=== PATIENT | female | born 1975 | race Native Hawaiian/Other Pacific Islander ===

== ENCOUNTER 2017-08-02 08:42 | Day surgery (SDC) | payer OTHER ==
[2017-08-02] MEDS ORDERED: Sodium Chloride 0.9% 1,000 ML IV ONE (09:22)
[2017-08-02 10:39] LABS: BASO # 0.1 K/uL (0.0-0.2); BASO % 1.7 % (0.0-2.0); EOS # 0.1 K/uL (0.0-0.7); EOS % 2.4 % (0.0-4.0); HEMOGLOBIN 14.4 g/dL (12.0-16.0); LYMPH # 1.4 K/uL (1.0-4.3); LYMPH % 35.9 % (20.0-40.0); MEAN CELL VOLUME 87.5 fl (81.0-99.0); MEAN CORPUSCULAR HEMOGLOBIN 29.9 pg (27.0-31.0); MEAN CORPUSCULAR HGB CONC 34.2 g/dL (33.0-37.0); MEAN PLATELET VOLUME 8.8 fl (7.2-11.7); MONO # 0.4 K/uL (0.0-0.8); MONO % 10.5 % (0.0-10.0); NEUT % 49.5 % (50.0-75.0); RBC 4.82 Mil/uL (3.80-5.20); RED CELL DISTRIBUTION WIDTH 13.4 % (11.5-14.5)
[2017-08-02] MEDS ORDERED: Propofol 10 mg/ml Inj (20 ML) ONE (11:08)
[2017-08-02] MEDS ORDERED: Rocuronium 10 mg/ml (5 ml) ONE (11:08)
[2017-08-02] MEDS ORDERED: Succinylcholine 200 mg/10 ml Inj IV ONE (11:09)
[2017-08-02] MEDS ORDERED: Midazolam 2 MG/2 ML VIAL ONE (12:22)
[2017-08-02] MEDS ORDERED: Bupivacaine HCl 0.5% PF (30 ml) Inj ONE (12:48)
[2017-08-02] MEDS ORDERED: ePHEDrine 50 mg/ml Inj ONE (13:32)
[2017-08-02] MEDS ORDERED: Dexamethasone 4 mg/1 ml ONE (13:33)
[2017-08-02] MEDS ORDERED: Neostigmine 1:1000 (1 mg/ml) Inj ONE (13:38)
[2017-08-02] MEDS ORDERED: Bupivacaine 0.5% Inj(30mL) IJ ONE (13:41)
[2017-08-02] MEDS ORDERED: Silver Nitrate Topical - Stick ONE (14:13)
[2017-08-02] MEDS ORDERED: Lactated Ringer's 1,000 ML IV ONE ×2 (14:15→17:30)
[2017-08-02] MEDS ORDERED: Silver Nitrate Topical - Stick TOP ONE (14:40)
--- NOTE | 2017-08-02 16:01 | PCM.ANESB5 ---
Transverse Abdominis Block - Transverse Abdominis Plane Procedure Performed: Transverse Abdominis Plane Nerve Block Left, Transverse Abdominis Plane Nerve Block Right - Procedure Transverse Abdominis Plane Nerve Block: The procedure was explained to the patient that it is for post-operative pain management and would be performed after surgery. Consent was obtained prior to surgery after a thorough discussion with the patient regarding the benefits and possible complications of transverse abdominis plane block. After the surgery had concluded and before the patient emerged from general anesthesia, time-out was held with the circulating nurse to re-confirm the appropriate block. With the patient in supine position, the ultrasound probe was placed transverse to the abdominal wall at the mid-axillary line above the iliac crest of the appropriate side. The skin, subcutaneous tissue, fat, external oblique muscle, internal oblique muscle, and the transverse abdominis muscle were identified. The general area of the block site was then prepped with chloroprep. At this point, a # 21-gauge Stimuplex 4-inch needle was inserted posterior to and in plane with the ultrasound probe and directed anteriorly. Needle was advanced under direct ultrasound visualization until it reached the plane between the internal oblique and transverse abdominis muscles. After appropriate placement, 2mL of local anesthetic solution was injected. When the transverse abdominis plane was observed expanding in an ellipsoid way, the rest of the solution was slowly injected. A total of __20____ mL of __0.5___ % Bupivacaine was used for this block. The needle was then removed and sterile dressing was applied. Similarly, the same procedure was performed on the other side using the same medications. The patient had stable vital signs throughout and had no untoward complications after emergence from general anesthesia in the recovery room.
[2017-08-02] MEDS ORDERED: HYDROmorphone 0.5 mg/0.5 ml ISec IVP PRN (16:04)
[2017-08-02] MEDS ORDERED: Dexamethasone 10 MG in Dextrose 5% In Water 50 ML IV ONE (18:51)
[2017-08-02 20:48] VITALS: RESP 20
[2017-08-02 23:02] VITALS: BP 130/84; PULSE 83; TEMP 98; O2SAT 99
--- NOTE | 2017-08-07 18:24 | OP ---
PROCEDURE DATE: 08/02/2017 SURGEON: David Mcintyre M.D. GRAPHICS INTERN: Dale Solares M.D. PREOPERATIVE DIAGNOSIS: Dyspareunia and pelvic pain, rule out endometriosis. POSTOPERATIVE DIAGNOSIS: Dyspareunia and pelvic pain, rule out endometriosis. PROCEDURES PERFORMED: Diagnostic hysteroscopy; robotic laparoscopy, da Jaki; excision of endometriosis, and peritoneal ablation. COMPLICATIONS: None. ESTIMATED BLOOD LOSS: Minimal. DESCRIPTION OF PROCEDURE: After adequate anesthesia was obtained, the patient was placed in dorsal lithotomy position. She was prepped and draped. The surgeon was gowned and gloved. Attention was on the vaginal area where after placing a Banerjee in the bladder, a speculum was placed in the vagina. The anterior lip of the cervix was grasped, and the cervix was gently dilated, and a hysteroscopy was performed revealing a normal cavity with no polyps or any other masses. Attention was then on the abdomen where an open laparoscopy was performed by making an incision on the umbilicus and entering the peritoneum in a blunt fashion. Under direct visualization, three additional ports were placed; left upper quadrant, left mid quadrant, and right upper quadrant. The da Jaki Xi robot was then docked. At this point, attention was on the pelvis. There appeared some areas of erythema in the pelvis that were suspicious for endometriosis. The peritoneum overlying the ureter was grasped, and the retroperitoneum was entered, and a dissection over an area of the peritoneum was performed extending from the utero-ovarian ligament all the way to the left utero-ovarian ligament. An area also suspicious of endometriosis was excised from the posterior cervical area. Similarly on the right hand side, after identifying the ureter, a full dissection was performed of peritoneum, again extending from the upper part of the pelvic sidewall all the way down to the uterosacral ligaments. The J-Plasma was then used to ablate areas of peritoneum that appeared to be erythematous but not affected with endometriosis, especially in the cul-de-sac area. At this point, it was checked for hemostasis, appeared to be excellent. The da Jaki robot was undocked. The instruments were removed. The incisions were closed with 0 Vicryl for the fascia and 4-0 Monocryl for the skin. At the end of the procedure, all tape and instrument counts were correct. The patient tolerated the procedure well, was taken to the recovery room in excellent condition. David Mcintyre MD
== END 2017-08-02 22:50 | disposition home or self-care (01) ==
LOC: H.OPSURG 08:42 → H.PEDS 20:10 → H.OPSURG 22:50
PROVIDERS: ATTEND Obstetrics & Gynecology Reproductive Endocrinology
DX: N80.3 Endometriosis of pelvic peritoneum (principal); R10.2 Pelvic and perineal pain; E03.9 Hypothyroidism, unspecified; N94.10 Unspecified dyspareunia; N94.6 Dysmenorrhea, unspecified
CPT/HCPCS: 36415; 58563; 58662; 64488; 85025; 86850; 86900; 88305; C1729; J0330; J0690; J1100; J1170; J2001; J2250; J2405; J2704; J2710; J2765; J3010; J7030; J7040; J7120

== ENCOUNTER 2017-08-04 11:10 | Observation (INO) | payer OTHER ==
[2017-08-04 11:28] VITALS: BMI 21.2
[2017-08-04] MEDS ORDERED: Sodium Chloride 0.9% 1,000 ML IV STA (11:30)
--- NOTE | 2017-08-04 12:13 | ED PDOC ---
HPI: Abdomen Time Seen by Provider: 08/04/17 11:15 Chief Complaint (Nursing): Abdominal Pain Additional Complaint(s): 42 year old female with a history of hyperthyroidism presents to the ED complaining of abdominal pain s/p laparoscopic surgery. She states she had laparoscopic surgery on for endometriosis. Patient reports that pain was bearable the day after surgery, but has worsened yesterday and today. She has taken oxycodone without relief. Patient has minimal nausea and is able to pass flatus but denies fever, vomiting, diarrhea, or any other medical complaints. PMD: Dr. David Mcintyre Past Medical History - Medical History PMH: Hyperthyroidism Denies: Chronic Kidney Disease - Surgical History Other surgeries: laparoscopic surgery - Family History Family History: States: Unknown Family Hx - Home Medications Home Medications: Ambulatory Orders Medication Instructions Recorded Docusate [Colace] 100 mg PO PRN PRN 08/02/17 Ondansetron [Zofran Tab] 4 mg PO Q8 PRN 08/02/17 Oxycodone HCl [Roxicodone] 5 mg PO .Q6-8 PRN 08/02/17 - Allergies Allergies/Adverse Reactions: Allergies Allergy/AdvReac Type Severity Reaction Status Date / Time acetaminophen [From Tylenol] Allergy RASH Verified 08/04/17 12:01 aspirin Allergy RASH Verified 08/04/17 12:01 ibuprofen Allergy RASH Verified 08/04/17 12:01 Review of Systems ROS Statement: Except As Marked, All Systems Reviewed And Found Negative Constitutional: Negative for: Fever Gastrointestinal: Positive for: Nausea (minimal), Abdominal Pain (worsening). Negative for: Vomiting, Diarrhea Physical Exam - Physical Exam Appears: Positive for: Non-toxic, In Acute Distress (moderate painful) Head Exam: Positive for: ATRAUMATIC, NORMOCEPHALIC Skin: Positive for: Normal Color, Warm, Dry Eye Exam: Positive for: EOMI, Normal appearance, PERRL Neck: Positive for: Normal, Painless ROM Cardiovascular/Chest: Positive for: Regular Rate, Rhythm Respiratory: Positive for: CNT, Normal Breath Sounds Gastrointestinal/Abdominal: Positive for: Tenderness (bilateral upper quadrants) , Guarding (voluntary), Other (dressings intact and dry, no edema, no erythema ) . Negative for: Rebound Extremity: Positive for: Normal ROM (upper and lower extremities) Neurologic/Psych: Positive for: Alert (x3), Oriented - Laboratory Results Result Diagrams: 08/04/17 12:18 08/04/17 12:18 - ECG Pulse Ox Interpretation: Normal Medical Decision Making Medical Decision Making: Time: 11:28 Initial Impression: Abdominal Pain s/p laparoscopy Initial Plan: --CT Abd & Pelvis --EKG --CMP --Urine preg --Urine dip --CBC with differentials --PTT --Prothrombin --Morphine 2mg IV --NS IV --Zofran ODT 4 mg PO --Urinalysis Time: 12:15 --HCG Serum Scribe Attestation: Documented by Agnes Gonzales, acting as a scribe for Demetria Nails MD Provider Scribe Attestation: All medical record entries made by the Scribe were at my direction and personally dictated by me. I have reviewed the chart and agree that the record accurately reflects my personal performance of the history, physical exam, medical decision making, and the department course for this patient. I have also personally directed, reviewed, and agree with the discharge instructions and disposition. Disposition - Disposition Forms: J[employer]i (Yoruba)
[2017-08-04 12:31] LABS: BASO # 0.1 K/uL (0.0-0.2); BASO % 0.7 % (0.0-2.0); EOS # 0.1 K/uL (0.0-0.7); EOS % 0.7 % (0.0-4.0); HEMOGLOBIN 13.6 g/dL (12.0-16.0); LYMPH # 1.7 K/uL (1.0-4.3); LYMPH % 19.6 % (20.0-40.0); MEAN CELL VOLUME 88.4 fl (81.0-99.0); MEAN CORPUSCULAR HEMOGLOBIN 29.5 pg (27.0-31.0); MEAN CORPUSCULAR HGB CONC 33.3 g/dL (33.0-37.0); MEAN PLATELET VOLUME 8.8 fl (7.2-11.7); MONO # 0.9 K/uL (0.0-0.8); MONO % 10.6 % (0.0-10.0); NEUT # 5.9 K/uL (1.8-7.0); NEUT % 68.4 % (50.0-75.0); RBC 4.62 Mil/uL (3.80-5.20); RED CELL DISTRIBUTION WIDTH 13.7 % (11.5-14.5)
[2017-08-04 12:34] LABS: WHITE BLOOD COUNT 8.6 K/uL (4.8-10.8)
[2017-08-04 12:35] LABS: ALB/GLOB RATIO 1.2 (1.0-2.1); ALT/SGPT 21 U/L (9-52); AST/SGOT 19 U/L (14-36); BLOOD UREA NITROGEN 8 mg/dl (7-17); GFR AFRICAN-AMERICAN > 60; GFR NON-AFRICAN AMERICAN > 60
[2017-08-04 12:45] LABS: PARTIAL THROMBOPLASTIN TIME 33.4 Seconds (25.6-37.1); PROTHROMBIN TIME 10.5 Seconds (9.8-13.1)
[2017-08-04] MEDS ORDERED: Iohexol 300 100 ML IJ ONE (12:56)
[2017-08-04] MEDS ORDERED: Sodium Chloride 0.9% 50 ML IV ONE (12:56)
--- NOTE | 2017-08-04 14:42 | CT ---
PROCEDURE: CT Abdomen and Pelvis with contrast HISTORY: Upper abd pain, status post laparoscopy 2 days ago COMPARISON: None. TECHNIQUE: Contrast dose: 100 mL Omnipaque 300. Axial and reformatted coronal and sagittal CT images of the abdomen and pelvis were obtained after IV contrast administration. Radiation dose: Total exam DLP = 272.9 mGy-cm. This CT exam was performed using one or more of the following dose reduction techniques: Automated exposure control, adjustment of the mA and/or kV according to patient size, and/or use of iterative reconstruction technique. FINDINGS: LOWER THORAX: No evidence of acute pathology in the lung bases LIVER: Unremarkable. No gross lesion or ductal dilatation. GALLBLADDER AND BILE DUCTS: The gallbladder is mildly distended demonstrate mild wall thickening without evidence of acute cholecystitis PANCREAS: Unremarkable. No gross lesion or ductal dilatation. SPLEEN: Unremarkable. ADRENALS: Unremarkable. No mass. KIDNEYS AND URETERS: Unremarkable. No hydronephrosis. No solid mass. VASCULATURE: Unremarkable. No aortic aneurysm. BOWEL: The large bowel is mildly distended. There is no evidence of high-grade bowel obstruction. The stomach is mildly distended demonstrate diffuse wall thickening suspicious for gastritis APPENDIX: Normal appendix. PERITONEUM: Small to moderate amount of free air in the abdomen and pelvis likely related to recent laparoscopy. No evidence of significant free fluid. LYMPH NODES: Unremarkable. No enlarged lymph nodes. BLADDER: Unremarkable. REPRODUCTIVE: The uterus is heterogeneous prominent in size. There is 2 centimeter enhancing wall cyst at the right adnexa. There is a small amount of free fluid in the pelvis with high attenuation may represent small hemorrhage BONES: No acute fracture. OTHER FINDINGS: None. IMPRESSION: No evidence of pancreatitis cholecystitis or appendicitis. Diffuse gastric wall thickening suspicious for gastritis. Heterogeneous uterus and small amount of high attenuation fluid in the pelvis may represent small hemorrhage. 2 centimeter cyst at the right adnexa. Free air likely due to recent laparoscopy. Mildly dilated large bowel likely due to mild bowel ileus.
[2017-08-04] MEDS ORDERED: HYDROmorphone 0.5 mg/0.5 ml ISec IVP PRN (14:43)
[2017-08-04 15:23] LABS: SQUAMOUS EPITHIAL 7 /hpf (0-5); URINE BACTERIA RARE (<OCC); URINE BILIRUBIN NEGATIVE (NEGATIVE); URINE BLOOD NEGATIVE (NEGATIVE); URINE CLARITY SLIGHTY-CLOUDY (Clear); URINE COLOR STRAW (YELLOW); URINE GLUCOSE (UA) NEG (Normal); URINE LEUKOCYTE ESTERASE SMALL Leu/uL (Negative); URINE PROTEIN NEGATIVE (NEGATIVE); URINE UROBILINOGEN 0.2-1.0 mg/dL (0.2-1.0)
[2017-08-04 16:07] VITALS: RESP 20
[2017-08-04 18:26] VITALS: O2SAT 99
[2017-08-04 20:01] VITALS: BP 116/60; PULSE 66; TEMP 99.1
--- NOTE | 2017-08-06 14:39 | CARD ---
APPROVED REPORT EKG Measurement Heart [id number] <Conclusion> Normal sinus rhythm Normal ECG
== END 2017-08-04 21:55 | disposition home or self-care (01) ==
LOC: H.ER 11:10 → H.ERHOLD 14:42 → H.MEDSURG1 17:57
PROVIDERS: ADMIT Obstetrics & Gynecology Reproductive Endocrinology; ATTEND Obstetrics & Gynecology Reproductive Endocrinology
DX: R10.9 Unspecified abdominal pain (principal); N80.9 Endometriosis, unspecified; E05.90 Thyrotoxicosis, unspecified without thyrotoxic crisis or storm; Z98.890 Other specified postprocedural states
CPT/HCPCS: 74177; 80053; 81003; 81025; 84703; 85025; 85610; 85730; 87086; 93005; 96374; 96375; 99284; G0378; J2270; J2405; J7030; Q9967